=== PATIENT | male | born 1950 | race Caucasian/White ===

== ENCOUNTER 2021-06-08 06:59 | Inpatient (IN) | payer MEDICARE, OTHER ==
[~2021-06-08] VITALS: Ht 195.6 cm; Wt 90.5 kg
[2021-06-08] MEDS ORDERED: LABETALOL 100MG/20ML VIAL IV STA ×2 (07:29→08:42)
--- NOTE | 2021-06-08 07:47 | REPVR ---
PROCEDURE INFORMATION: Exam: CT Head Without Contrast Exam date and time: 06/08/2021 7:42 AM Age: 71 years old Clinical indication: Weakness, extremity; Additional info: CVA TECHNIQUE: Imaging protocol: Computed tomography of the head without contrast. Radiation optimization: All CT scans at this facility use at least one of these dose optimization techniques: automated exposure control; mA and/or kV adjustment per patient size (includes targeted exams where dose is matched to clinical indication); or iterative reconstruction. Other technique: STROKE PROTOCOL was implemented. COMPARISON: No relevant prior studies available. FINDINGS: Brain: The brain demonstrates mild diffuse volume loss. There is white matter hypodensity most consistent with chronic small vessel ischemic change. Cerebral ventricles: The ventricles and CSF spaces are proportionately enlarged. Paranasal sinuses: Visualized sinuses are unremarkable. No fluid levels. Mastoid air cells: Visualized mastoid air cells are well aerated. Vasculature: There is atherosclerotic disease involving the vertebral basilar system and cavernous ICAs. Bones/joints: No acute fracture. Soft tissues: Unremarkable. IMPRESSION: 1. Mild atrophy and the sequela prior small vessel ischemia. 2. There is no acute intracranial abnormality. ASSESSMENT: ASPECTS ([place] Stroke Program Early CT Score) is 10. Electronically signed by: Imtiaz Briones On 06/08/2021 07:46:35 AM
[2021-06-08 08:02] LABS: BASO % 0.9 % (0.0-1.0); HEMATOCRIT 31.4 % (42.0-52.0); HEMOGLOBIN 10.7 g/dl (13.5-17.5); LYMPH # 0.5 10^3/uL (1.5-5.0); LYMPH % 11.2 % (24.0-44.0); MEAN CORPUSCULAR HEMOGLOBIN 33.4 pg (27.0-33.0); MEAN CORPUSCULAR HGB CONC 34.1 g/dl (32.0-36.5); MEAN CORPUSCULAR VOLUME 98.1 fl (80.0-96.0); MONO # 0.4 10^3/uL (0.0-0.8); MONO % 8.8 % (2.0-8.0); NEUTROPHILS # 3.6 10^3/uL (1.5-8.5); NEUTROPHILS % 78.4 % (36.0-66.0); PLATELET COUNT, AUTOMATED 142 10^3/uL (150-450); WHITE BLOOD COUNT 4.6 10^3/uL (4.0-10.0)
--- NOTE | 2021-06-08 08:25 | REP ---
INDICATION: weakness. COMPARISON: None TECHNIQUE: Portable AP chest with the patient sitting. FINDINGS: There is mild diffuse interstitial coarsening. There are no comparison studies. This could be chronic, acute or combination. There are surgical staple lines in the right mid lung. There are no focal infiltrates. There are no pleural effusions. Cardiac size is normal. The fransico, mediastinum, and skeletal structures are unremarkable. IMPRESSION: Mild diffuse interstitial coarsening, acute, chronic or combination. There are no comparisons. Surgical staple lines in the right mid lung. <Electronically signed by Santi Macedo > 06/08/21 [id number]
[2021-06-08 08:37] LABS: ALBUMIN 3.2 GM/DL (3.2-5.2); ALT/SGPT 16 U/L (12-78); BILIRUBIN,DIRECT 0.3 MG/DL (0.0-0.2); BILIRUBIN,TOTAL 0.9 MG/DL (0.2-1.0); BLOOD UREA NITROGEN 7 MG/DL (7-18); CALCIUM LEVEL 7.6 MG/DL (8.8-10.2); CARBON DIOXIDE LEVEL 16 MEQ/L (21-32); CHLORIDE LEVEL 97 MEQ/L (98-107); CK-MB VALUE MASS 2.3 NG/ML (<3.6); CPK CREATINE PHOSPHOKINASE 69 U/L (39-308); CREATININE FOR GFR 0.58 MG/DL (0.70-1.30); FREE T4 1.01 NG/DL (0.76-1.46); GLOMERULAR FILTRATION RATE > 60.0 (>49); GLUCOSE, FASTING 68 MG/DL (70-100); MB/CK RELATIVE INDEX 3.33 (< OR =4); POTASSIUM SERUM 3.5 MEQ/L (3.5-5.1); SODIUM LEVEL 131 MEQ/L (136-145); THYROID STIMULATING HORMONE 0.133 uIU/ML (0.358-3.740); TOTAL PROTEIN 6.7 GM/DL (6.4-8.2); TROPONIN I < 0.02 NG/ML (< 0.10)
[2021-06-08 09:08] LABS: ABG BASE EXCESS -1.6 (-2.0-2.0); ABG HCO3 19.4 MEQ/L (22.0-26.0); ABG O2 SATURATION 97.9 % (95.0-99.0); ABG PARTIAL PRESSURE CO2 24.1 mmHg (35.0-45.0); ABG PARTIAL PRESSURE O2 100.4 mmHg (75.0-100.0); ABG STANDARD HCO3 23.2 MEQ/L (22.0-26.0); ABG TOTAL CO2 20.1 MEQ/L (23.0-31.0); ABG pH (ARTERIAL) 7.523 UNITS (7.350-7.450)
[2021-06-08] MEDS ORDERED: cloNIDine 0.2 MG TAB PO ONE (09:25)
[2021-06-08] MEDS ORDERED: ACETAMINOPHEN TAB 650MG DOSE (2X325MG) PO PRN (09:25)
[2021-06-08] MEDS ORDERED: LORazepam 2 MG TAB PO PRN (09:25)
[2021-06-08] MEDS: THIAMINE 100 MG TAB PO SCH ×2 (10:07→20:52)
[2021-06-08] MEDS: FOLIC ACID 1 MG TAB PO SCH (10:07)
[2021-06-08] MEDS: MULTIVITAMINS/MINERALS THERAP 1 TAB PO SCH (10:08)
[2021-06-08 10:13] LABS: RSV AMPLIFICATION NEGATIVE (NEGATIVE)
[2021-06-08] MEDS ORDERED: MAGN400T2 PO (10:17)
[2021-06-08] MEDS ORDERED: FOLI1TAB11 PO (10:17)
[2021-06-08] MEDS ORDERED: HYDR100T PO (10:17)
[2021-06-08] MEDS ORDERED: CLON0.2T PO (10:17)
[2021-06-08] MEDS ORDERED: SODI1TAB12 PO (10:17)
[2021-06-08] MEDS ORDERED: METO100T5 PO (10:17)
[2021-06-08] MEDS ORDERED: VITA100T28 PO (10:17)
[2021-06-08] MEDS ORDERED: HOME MED LIST COMPLETE! XX SCH (10:20)
[2021-06-08 10:39] LABS: ACETAMINOPHEN LEVEL < 2.0 UG/ML (10.0-30.0); ETHYL ALCOHOL (ETHANOL) < 0.003 % (0.000-0.010); SALICYLATE LEVEL < 1.7 MG/DL (5.0-30.0)
[2021-06-08] MEDS: METOPROLOL TARTRATE 100 MG TAB PO SCH ×2 (12:08→20:52)
[2021-06-08] MEDS: **hydrALAZINE** 50 MG TAB PO SCH ×3 (12:08→20:52)
[2021-06-08] MEDS: ENOXAPARIN 40MG/0.4ML SYRINGE (J1650 PER 10MG) SC SCH (12:09)
--- NOTE | 2021-06-08 15:36 | HPEPDOC ---
[facility] Medical History & Physical Date of Admission Jun 08, 2021 Date of Service: Jun 08, 2021 Attending Physician: HUDSON HERNANDEZ MD History and Physical CHIEF COMPLAINT: Lower extremity weakness, inability to ambulate HISTORY OF PRESENT ILLNESS: 71 yo man who recently moved to [place] 1 week ago from the [facility], with a history of severe essential HTN on clonidine 0.2 BID, lopressor 100 BID, hydral 100 TID at baseline and has not taken his meds today, suspected alcohol use disorder with daily use, Dupuytren's contractures, and history of constrictive bronchiolitis and pulmonary fibrosis who presented to the ED with lower extremity weakness and inability to ambulate reporting that having had tingling in his feet for a while now but now also has weakness and this morning could not get out of bed and had to crawl. He reports recently having moved to [place] to live with his son, after he lost most of of his livelihood due ongoing divorce with his ex- and lost his apartment, car etc and so moved to live with the kids here. He denies a history of smoking, illicit drugs, but does have significant alcohol consumption, which he initially reported to be daily but then later reported 12 pack per week and report having had 4 beers last night. When asked about his Dupuytren's contractures, he reported them to be familial with several brothers who have them as well. He otherwise denied history of DM, fever, chills, chest pain, palpitations, headaches, falls, dizziness or SOB. In the ED, he was hypertensive to SBP 190s and received labetalol IV, a total of 30mg with mild effect. Investigations were notable for EKG with NSR, troponin that was negative, CXR without pathology, WBC 4.6, hgb 10.7, platelets 142, LFTs wnl, na 131, K 3.5, Cr 0.58, glucose [address] that showed no mass, bleeding or infarct. He is now being admitted for hypertensive urgency, likely dehydration i/s/o alcohol consumption (later had a reported mild lactic acidosis), and possible impending alcohol withdrawal. PAST MEDICAL HISTORY: severe essential HTN Chronic hyponatremia Suspected alcohol use disorder with daily use Dupuytren's contractures history of constrictive bronchiolitis and pulmonary fibrosis PAST SURGICAL HISTORY: Multiple bronchoscopies and biopsies SOCIAL HISTORY: Marital status: In the process of getting a divorce Resides in: [place] Children: 2 sons in [facility], one in [place], one in [place]. Employment: Unemployed Tobacco use: Denies ETOH: Daily use, beer Illicit drug use: Denies FAMILY HISTORY: Brothers also have Dupuytren's contractures ALLERGIES: Please see below. REVIEW OF SYSTEMS: 10 point ROS was completed and was otherwise negative, except as noted above. HOME MEDICATIONS: Please see below. PHYSICAL EXAMINATION: VITAL SIGNS: see below GENERAL APPEARANCE: NAD HEENT: NCAT, EOMI, anicteric, MMM CARDIOVASCULAR: RRR, no m/r/g LUNGS: CTAB ABDOMEN: normoactive sounds, soft, NTND EXTREMITIES: No pedal edema, WWP, good DP pulses NEUROLOGICAL: Cn 3-12 intact, AOx3, grossly nonfocal examination PSYCHIATRIC: Aox3 LABORATORY DATA and IMAGING: Summarized above, see below for full details. MICROBIOLOGY: Please see below. ASSESSMENT: 71 yo man who recently moved to [place] 1 week ago from the [facility], with a history of severe essential HTN on clonidine 0.2 BID, lopressor 100 BID, hydral 100 TID at baseline and has not taken his meds today, suspected alcohol use disorder with daily use, Dupuytren's contractures, and history of constrictive bronchiolitis and pulmonary fibrosis who presented to the ED with lower extremity weakness and inability to ambulate reporting that having had tingling in his feet for a while now but now also has weakness now being admitted for hypertensive urgency, likely dehydration i/s/o alcohol consumption (later had a reported mild lactic acidosis), and possible impending alcohol withdrawal. PLAN: Hypertensive urgency i/s/o no meds onboard today, with a history of severe essential HTN: -restart home meds of clonidine 0.2 BID, lopressor 100 BID, hydral 100 TID -reports a history of allergies to ACEi and CCB -renal US to r/o SHANNON -telemetry -admit to PCU -2g sodium diet Generalized weakness with LE weakness: -possible poor nutrition with alcohol abuse -PT/OT -check a1c, Vit B12 and Vit b6 given neuropathy history -full strength on examination wtih feet blunting of sensation. No red flags on examination and on history -CT head was without acute pathology Suspected alcohol use disorder: -[facility] protocol for potential impending withdrawal, with symptom triggered ativan PRN -thiamine, folate, multivitamin Chronic hyponatremia: -continue home salt tabs -check urine na, serum osm Lactic acidosis: likely 2/2 dehydration i/s/o alcohol -check 4hr recheck, if uptrending, will give some IVF Anemia: -Ferritin, TIBC, iron, Vit b12, folate, retic Neuropathy: -check Vit b12, Vit b6, a1c DVT ppx: lovenox SC Vital Signs Vital Signs Date Time Temp Pulse Resp B/P (MAP) Pulse Ox O2 Delivery O2 Flow Rate FiO2 06/08/21 11:15 70 175/79 (111) 06/08/21 11:01 12 98 06/08/21 07:42 97.4 06/08/21 07:19 Room Air Laboratory Data Labs 24H Laboratory Tests 2 06/08/21 07:22: Bedside Glucose (Misc Panel) 82 06/08/21 07:49: Immature Granulocyte % (Auto) 0.7, Neutrophils (%) (Auto) 78.4H, Lymphocytes (%) (Auto) 11.2L, Monocytes (%) (Auto) 8.8H, Eosinophils (%) (Auto) 0.0, Basophils (%) (Auto) 0.9, Neutrophils # (Auto) 3.6, Lymphocytes # (Auto) 0.5L, Monocytes # (Auto) 0.4, Eosinophils # (Auto) 0.0, Basophils # (Auto) 0.0, Nucleated Red Blood Cells % (auto) 0.0, Anion Gap 18H, Glomerular Filtration Rate > 60.0, Calcium Level 7.6L, Total Bilirubin 0.9, Direct Bilirubin 0.3H, Aspartate Amino Transf (AST/SGOT) 29, Alanine Aminotransferase (ALT/SGPT) 16, Alkaline Phosphatase 52, Total Creatine Kinase 69, Creatine Kinase MB 2.3, Creatine Kinase MB Relative Index 3.33, Troponin I < 0.02, Total Protein 6.7, Albumin 3.2, Albumin/Globulin Ratio 0.9, Thyroid Stimulating Hormone (TSH) 0.133L, Free Thyroxine 1.01 06/08/21 08:58: Blood Gas Bicarbonate Standard 23.2, Arterial Blood pH 7.523H, Arterial Blood Partial Pressure CO2 24.1L, Arterial Blood Partial Pressure O2 100.4H, Arterial Blood Total CO2 20.1L, Arterial Blood HCO3 19.4L, Arterial Blood Base Excess - 1.6, Arterial Blood Oxygen Saturation 97.9 06/08/21 09:23: Coronavirus (COVID-19)(PCR) NEGATIVE, Influenza Type A (RT-PCR) NEGATIVE, Influenza Type B (RT-PCR) NEGATIVE, Respiratory Syncytial Virus (PCR) NEGATIVE 06/08/21 09:58: Lactic Acid Level 3.2*H, Salicylates Level < 1.7L, Acetaminophen Level < 2.0L, Ethyl Alcohol Level < 0.003 06/08/21 10:11: 06/08/21 14:06: Bedside Glucose (Misc Panel) 72L 06/08/21 14:29: CBC/BMP Laboratory Tests 06/08/21 07:49 Home Medications Scheduled Clonidine HCl (Clonidine HCl) 0.2 Mg Tablet, 0.2 MG PO TID Folic Acid (Folic Acid) 1 Mg Tablet, 1 MG PO DAILY Magnesium Oxide (Magnesium Oxide) 400 Mg Tablet, 400 MG PO DAILY Metoprolol Tartrate (Metoprolol Tartrate) 100 Mg Tablet, 100 MG PO BID Sodium Chloride (Sodium Chloride) 1 Gm Tablet, 1 GM PO TID Thiamine Mononitrate (Vit B1) (Vitamin B-1) 100 Mg Tablet, 100 MG PO DAILY hydrALAZINE HCL (Hydralazine HCl) 100 Mg Tablet, 100 MG PO TID Allergies Coded Allergies: amlodipine (Verified Allergy, Unknown, 06/08/21) lisinopril (Verified Allergy, Unknown, 06/08/21) prednisone (Verified Allergy, Unknown, 06/08/21) A-FIB/CHADSVASC A-FIB History Current/History of A-Fib/PAF?: No Current PO Anticoag Therapy: No Age/Risk Factor Scoring CHADSVASC: CHADSVASC Response (Comments) Value Age Risk Factor Age 65-74 years old 1 Gender Risk Factor Male 0 Hx of CHF No 0 Hx of HTN Yes 1 Hx of Stroke/TIA/or VTE No 0 Hx of Diabetes No 0 Hx of Vascular Disease No 0 Total 2 Treatment Treatment ordered: NONE Reason Anticoagulant not given: Not indicated/[id number] HUDSON HERNANDEZ MD Jun 08, 2021 15:36
[2021-06-08 15:45] VITALS: BP_SYST 178; BP_SYST 188; BP_DIAS 88; BP_DIAS 95
[2021-06-08] MEDS: cloNIDine 0.2 MG TAB PO SCH ×2 (16:15→20:50)
[2021-06-08 20:00] VITALS: BP 137/70
[2021-06-08] MEDS ORDERED: cloNIDine 0.1MG TABLET PO SCH (21:00)
[2021-06-08 22:00] VITALS: BP_SYST 130; BP_SYST 137; BP_DIAS 70
[2021-06-09] VITALS: BP 131/70
[2021-06-09 04:00] VITALS: BP 165/86
[2021-06-09 05:25] LABS: HEMATOCRIT 37.1 % (42.0-52.0); MEAN CORPUSCULAR HEMOGLOBIN 33.8 pg (27.0-33.0); MEAN CORPUSCULAR HGB CONC 35.3 g/dl (32.0-36.5); MEAN CORPUSCULAR VOLUME 95.6 fl (80.0-96.0); PLATELET COUNT, AUTOMATED 156 10^3/uL (150-450); RED BLOOD COUNT 3.88 10^6/uL (4.30-6.10); WHITE BLOOD COUNT 4.9 10^3/uL (4.0-10.0)
[2021-06-09 05:32] LABS: HEMOGLOBIN 13.1 g/dl (13.5-17.5)
[2021-06-09 05:56] LABS: BLOOD UREA NITROGEN 7 MG/DL (7-18); CALCIUM LEVEL 7.8 MG/DL (8.8-10.2); CARBON DIOXIDE LEVEL 27 MEQ/L (21-32); CHLORIDE LEVEL 95 MEQ/L (98-107); CREATININE FOR GFR 0.67 MG/DL (0.70-1.30); FERRITIN 320 NG/ML (26-388); GLOMERULAR FILTRATION RATE > 60.0 (>49); GLUCOSE, FASTING 77 MG/DL (70-100); IRON (FE) 134 UG/DL (65-175); MAGNESIUM LEVEL 1.4 MG/DL (1.8-2.4); PERCENT SATURATION 76.1 % (19.7-50.0); POTASSIUM SERUM 3.8 MEQ/L (3.5-5.1); SODIUM LEVEL 130 MEQ/L (136-145); TOTAL IRON BINDING CAPACITY 176 UG/DL (250-450)
[2021-06-09 06:00] VITALS: BP 165/86
[2021-06-09 06:10] LABS: HEMOGLOBIN A1c 4.5 %
--- NOTE | 2021-06-09 07:00 | ECGEPIP ---
[facility] - ED Test Date: 2021-06-08 Pat Name: ERICA MCKEON Department: Room: [place] [address] Gender: Male Intranet Specialist: : [id number] Requested By: ARIELLA Addison Order Number: [id number] Reading MD: Koko Du Measurements Intervals [place] Rate: 78 P: 95 IN: 146 QRS: 71 QRSD: 94 T: -19 QT: 416 QTc: 474 Interpretive Statements Sinus rhythm with premature atrial complexes Inferior infarct , age undetermined BASELINE ARTIFACT AFFECTS INTERPRETATION NO PRIORS FOR COMPARISON Electronically Signed on 06-09-2021 7:00:19 EDT by Koko Du
[2021-06-09] MEDS ORDERED: MAG SULF 1GM/100ML (MAG RUN) 1 GM in IV 1 EA IV ONE (07:50)
[2021-06-09 08:00] VITALS: BP 178/88
[2021-06-09 08:53] LABS: FOLATE 15.2 NG/ML
[2021-06-09 08:59] LABS: VITAMIN B12 LEVEL 620 PG/ML
[2021-06-09] MEDS ORDERED: METOPROLOL SUCC (TopROL XL) 50MG **XL** TAB PO SCH (09:00)
[2021-06-09] MEDS: METOPROLOL TARTRATE 100 MG TAB PO SCH (09:00)
[2021-06-09] MEDS: cloNIDine 0.2 MG TAB PO SCH ×2 (09:00→10:19)
[2021-06-09] MEDS ORDERED: SODIUM CHLORIDE 1 GM TAB PO SCH (09:00)
[2021-06-09] MEDS: THIAMINE 100 MG TAB PO SCH (09:03)
[2021-06-09] MEDS: FOLIC ACID 1 MG TAB PO SCH (09:03)
[2021-06-09] MEDS: MULTIVITAMINS/MINERALS THERAP 1 TAB PO SCH (09:03)
[2021-06-09] MEDS: ENOXAPARIN 40MG/0.4ML SYRINGE (J1650 PER 10MG) SC SCH (09:04)
[2021-06-09] MEDS: **hydrALAZINE** 50 MG TAB PO SCH (09:04)
--- NOTE | 2021-06-09 09:08 | REP ---
INDICATION: Hypertension. R/O Renal Artery Stenosis. COMPARISON: None. TECHNIQUE: Bilateral renal ultrasound followed by bilateral renal artery Doppler ultrasound. FINDINGS: Bilateral renal ultrasound: The right kidney measures 11.0 x 4.7 x 5.6 cm. The left kidney measures 12.1 x 4.4 x 5.7 cm. The kidneys are normal size. Renal cortical echogenicity is normal bilaterally. There is no hydronephrosis or hydroureter on the right or the left. There are no solid or cystic renal masses. Bladder: The bladder is incompletely distended and cannot be further evaluated. With Doppler ultrasound we are unable to identify ureteral jets. However, there is no hydronephrosis. The prostate measures 4.6 x 3.4 x 5.2 cm for a volume of 42.5 cc and is enlarged. IMPRESSION: The prostate is enlarged. The bladder is incompletely distended and cannot be further evaluated. Ureteral jets could not be identified, however there is no hydronephrosis. Otherwise, negative renal ultrasound. Bilateral renal artery duplex Doppler ultrasound: Right renal artery: Peak renal artery velocity: 117.4 centimeters/second. Peak aortic velocity: 86.2 centimeters/second. Renal-aortic ratio: 1.36. Resistive index: Upper pole 0.75, mid pole 0.75, lower pole 0.73 Acceleration time: Upper pole 0.019, mid pole 0.042, lower pole 0.014. Left kidney: Peak renal artery velocity: 104.9 centimeters/second. Peak aortic velocity: 86.2 centimeters/second. Renal-aortic ratio: 1.21. Resistive index: Upper pole 0.78, mid pole 0.78, lower pole 0.80. Acceleration time: Upper pole 0.025, mid pole 0.031, lower pole 0.025. Impression: The renal artery flow velocities are normal. The resistive indices and acceleration times are normal. There is no Doppler ultrasound evidence of renal artery stenosis. <Electronically signed by Santi Macedo > 06/09/21 [id number]
[2021-06-09 10:19] VITALS: BP 180/85
--- NOTE | 2021-06-09 11:28 | IPNPDOC ---
Text Note Date of Service The patient was seen on 06/09/21. NOTE Subjective: -No acute complaints Objective: VITAL SIGNS: see below GENERAL APPEARANCE: NAD HEENT: NCAT, EOMI, anicteric, MMM CARDIOVASCULAR: RRR, no m/r/g LUNGS: CTAB ABDOMEN: normoactive sounds, soft, NTND EXTREMITIES: No pedal edema, WWP, good DP pulses NEUROLOGICAL: Cn 3-12 intact, AOx3, grossly nonfocal examination PSYCHIATRIC: Aox3 LABORATORY DATA: reviewed WBC 4.9 Na 130 K 3.8 Cr 0.67 Ferritin 320 a1c 4.5 hgb 13.1 MICROBIOLOGY: Please see below. ASSESSMENT: 71 yo man who recently moved to [place] 1 week ago from the [facility], with a history of severe essential HTN on clonidine 0.2 BID, lopressor 100 BID, hydral 100 TID at baseline and has not taken his meds today, suspected alcohol use disorder with daily use, Dupuytren's contractures, and hi story of constrictive bronchiolitis and pulmonary fibrosis who presented to the ED with lower extremity weakness and inability to ambulate reporting that having had tingling in his feet for a while now but now also has weakness and was admitted for hypertensive urgency, weakness with inability to ambulate and possible impending alcohol withdrawal. PLAN: Hypertensive urgency i/s/o no meds onboard today, with a history of severe essential HTN: -continue clonidine 0.2 BID, lopressor 100 BID, hydral 100 TID -FYI: reports a history of allergies to ACEi and CCB -f/u renal US to r/o SHANNON -2g sodium diet Generalized weakness with LE weakness: -possible poor nutrition with alcohol abuse -PT/OT -a1c wnl, f/u Vit B12 and Vit b6 given neuropathy history -full strength on examination with feet blunting of sensation. No red flags on examination and on history -CT head was without acute pathology Suspected alcohol use disorder: -[facility] protocol for potential impending withdrawal, with symptom triggered ativan PRN -thiamine, folate, multivitamin Chronic hyponatremia: -continue home salt tabs Lactic acidosis: likely 2/2 dehydration i/s/o alcohol -resolved Anemia: improved hgb this AM? -Ferritin wnl, TIBC appropriate, iron wnl, appropriate retic index -f/u Vit b12, folate Neuropathy: -check Vit b12, Vit b6 -a1c wnl DVT ppx: lovenox SC Dispo: downgrade to [facility], has ongoing PT/OT, might be able to discharge home if cleared. Will need PCP with resident clinic and cardiology referral for severe HTN VS,Fishbone, I+O VS, Fishbone, I+O Laboratory Tests 06/09/21 05:06 Vital Signs Date Time Temp Pulse Resp B/P (MAP) Pulse Ox O2 Delivery O2 Flow Rate FiO2 06/09/21 06:00 60 165/86 06/09/21 04:00 98.1 16 98 Room Air I&O- Last 24 Hours up to 6 AM 06/09/21 05:59 Intake Total 240 ml Output Total 1300 ml Balance -1060 ml HUDSON HERNANDEZ MD Jun 09, 2021 08:06
[2021-06-09 12:00] VITALS: BP 152/80
--- NOTE | 2021-06-09 13:36 | DS.PDOC ---
Discharge Summary General Date of Admission Jun 08, 2021 at 09:23 Date of Discharge 06/09/2021 Attending Physician: HUDSON HERNADNEZ MD Discharge Summary PROCEDURES PERFORMED DURING STAY: None ADMITTING DIAGNOSES: Hypertensive urgency Generalized weakness with inability to ambulate Presumed alcohol use disorder DISCHARGE DIAGNOSES: Hpertensive urgency i/s/o longstanding severe essential HTN having missed morning medications Chronic hyponatremia Suspected alcohol use disorder with daily use, without evidence of withdrawal Dupuytren's contractures History of constrictive bronchiolitis and pulmonary fibrosis Generalized weakness, much improved COMPLICATIONS/CHIEF COMPLAINT: Alcohol Abuse,Hypertensive Urgency. HISTORY OF PRESENT ILLNESS: 71 yo man who recently moved to [place] 1 week prior to presentation from the [facility], with a history of severe essential HTN on clonidine 0.2 BID, lopressor 100 BID, hydral 100 TID at baseline and had not taken his meds on the morning of presentation, suspected alcohol use disorder with daily use, Dupuytren's contractures, and history of constrictive bronchiolitis and pulmonary fibrosis who presented to the ED with lower extremity weakness and inability to ambulate reporting some tingling in his feet for a while now but now also had weakness on the morning of presentation such that he could not get out of bed and had to crawl. He reported recently having moved to [place] to live with his son, after he lost most of of his livelihood due ongoing divorce with his ex- and lost his apartment, car etc and so moved to live with the adult kids here. He denies a history of smoking, illicit drugs, but does have significant alcohol consumption, which he initially reported to be daily but then later reported 12 pack per week and report having had 4 beers last the night prior to presentation. When asked about his Dupuytren's contractures, he reported them to be familial with several brothers who have them as well. He otherwise denied history of DM, fever, chills, chest pain, palpitations, headaches, falls, dizziness or SOB. HOSPITAL COURSE: In the ED, he was hypertensive to SBP 190s and received labetalol IV, a total of 30mg with mild effect. Investigations were notable for EKG with NSR, troponin that was negative, CXR without pathology, WBC 4.6, hgb 10.7, platelets 142, LFTs wnl, na 131, K 3.5, Cr 0.58, glucose [address] that showed no mass, bleeding or infarct. He was admitted for hypertensive urgency, weakness with inability to ambulate and possible impending alcohol withdrawal. On admission, I restarted his home meds with improvement in his HTN. He worked with PT and OT and did very well including ambulation and climbing stairs. He is now being discharged home to continue his baseline HTN meds, with new PCP setup for the resident clinic as well as referral to cardiology for hypertensive specialist given his severe longstanding hypertension. On another note, we discussed the deletirious effects of excessive alcohol consumption and the definition of dependence and risk for it with daily use. DISCHARGE MEDICATIONS: Please see below. ALLERGIES: Please see below. PHYSICAL EXAMINATION ON DISCHARGE: VITAL SIGNS: Please see below. GENERAL APPEARANCE: NAD HEENT: NCAT, EOMI, anicteric, MMM CARDIOVASCULAR: RRR, no m/r/g LUNGS: CTAB ABDOMEN: normoactive sounds, soft, NTND EXTREMITIES: No pedal edema, WWP, good DP pulses NEUROLOGICAL: Cn 3-12 intact, AOx3, grossly nonfocal examination PSYCHIATRIC: Aox3 LABORATORY DATA: Please see below. IMAGING: Ct head: No acute pathology without bleeding, masses or evidence of infarct CXR: Mild diffuse interstitial coarsening, acute, chronic or combination. There are no comparisons. Surgical staple lines in the right mid lung. PROGNOSIS: good ACTIVITY: As tolerated DIET: 2g sodium DISCHARGE PLAN: Home to continue current BP meds with close new PCP appointment within 7d and cardiology referral DISPOSITION: Home DISCHARGE INSTRUCTIONS: Home to continue current BP meds with close new PCP appointment within 7d and cardiology referral ITEMS TO FOLLOWUP ON ON OUTPATIENT: HTN Alcohol cessation DISCHARGE CONDITION: Stable TIME SPENT ON DISCHARGE: 34 minutes. Vital Signs/I&Os Vital Signs Date Time Temp Pulse Resp B/P (MAP) Pulse Ox O2 Delivery O2 Flow Rate FiO2 06/09/21 12:00 97.6 75 17 152/80 (104) 98 Room Air I&O- Last 24 Hours up to 6 AM 06/09/21 06:00 Intake Total 240 ml Output Total 1300 ml Balance -1060 ml Laboratory Data Labs 24H Laboratory Tests 2 06/08/21 14:06: Bedside Glucose (Misc Panel) 72L 06/08/21 14:29: Lactic Acid Followup at 4 Hours 1.5 8/11/21 00:01: Bedside Glucose (Misc Panel) 88 06/09/21 05:06: Reticulocyte # (auto) 57.4, Nucleated Red Blood Cells % (auto) 0.0, Percent Reticulocyte Count 1.5, Reticulocyte Hemoglobin Equivalent 38.1H, Anion Gap 8, Glomerular Filtration Rate > 60.0, Estimated Mean Plasma Glucose 82, Hemoglobin A1c 4.5, Calcium Level 7.8L, Magnesium Level 1.4L, Iron Level 134, Total Iron Binding Capacity 176L, Transferrin % Saturation 76.1H, Ferritin 320, Vitamin B12 Level 620, Folate 15.2 CBC/BMP Laboratory Tests 06/09/21 05:06 FSBS Laboratory Tests Test 06/08/21 14:06 06/09/21 00:01 Range/Units Bedside Glucose (Misc Panel) 72 88 80-115 MG/DL Discharge Medications Scheduled Clonidine HCl (Clonidine HCl) 0.2 Mg Tablet, 0.2 MG PO TID, (Reported) Folic Acid (Folic Acid) 1 Mg Tablet, 1 MG PO DAILY, (Reported) Magnesium Oxide (Magnesium Oxide) 400 Mg Tablet, 400 MG PO DAILY, (Reported) Metoprolol Tartrate (Metoprolol Tartrate) 100 Mg Tablet, 100 MG PO BID, (R eported) Sodium Chloride (Sodium Chloride) 1 Gm Tablet, 1 GM PO TID, (Reported) Thiamine Mononitrate (Vit B1) (Vitamin B-1) 100 Mg Tablet, 100 MG PO DAILY, (Reported) hydrALAZINE HCL (Hydralazine HCl) 100 Mg Tablet, 100 MG PO TID, (Reported) Allergies Coded Allergies: amlodipine (Verified Allergy, Unknown, 06/08/21) lisinopril (Verified Allergy, Unknown, 06/08/21) prednisone (Verified Allergy, Unknown, 06/08/21) HUDSON HERNANDEZ MD Jun 09, 2021 13:36
== END 2021-06-09 13:48 | disposition home or self-care (01) | DRG 556 ==
LOC: M ED 06:59 → M ED INP 09:23 → ENRESERV 14:29 → M PCU 15:46
PROVIDERS: ADMIT Internal Medicine; ATTEND Internal Medicine
DX: M62.81 Muscle weakness (generalized) (principal); E87.1 Hypo-osmolality and hyponatremia; E87.2 Acidosis; I16.0 Hypertensive urgency; F10.10 Alcohol abuse, uncomplicated; D64.9 Anemia, unspecified; G62.9 Polyneuropathy, unspecified; I10 Essential (primary) hypertension; J84.10 Pulmonary fibrosis, unspecified; M72.0 Palmar fascial fibromatosis [Dupuytren]; Z79.899 Other long term (current) drug therapy; Z88.8 Allergy status to other drugs, medicaments and biological substances; Z91.14 Patient's other noncompliance with medication regimen

== ENCOUNTER → 2021-09-17 | Outpatient (CLI) | payer OTHER ==
[~2021-09-17] MED LIST: CLON0.2T PO; FOLI1TAB11 PO; HYDR100T PO; MAGN400T2 PO; METO100T5 PO; SODI1TAB12 PO; VITA100T28 PO
== END ==
LOC: M RAD 16:07
PROVIDERS: ATTEND Internal Medicine Pulmonary Disease
DX: J47.9 Bronchiectasis, uncomplicated (principal); J43.9 Emphysema, unspecified; J84.9 Interstitial pulmonary disease, unspecified

== ENCOUNTER → 2022-05-26 | Outpatient (REF) | payer OTHER ==
[2022-05-26 17:43] LABS: OSMOLALITY URINE 422 MOSM/KG (50-1400)
[2022-05-26 18:41] LABS: SODIUM,RANDOM URINE 34 MEQ/L
== END ==
LOC: M LAB REF 17:00
PROVIDERS: ATTEND Internal Medicine Nephrology
DX: E87.1 Hypo-osmolality and hyponatremia (principal)

== ENCOUNTER → 2022-09-28 | Outpatient (REF) | payer OTHER, MEDICAID ==
[2022-09-28 18:15] LABS: BASO # 0.1 10^3/uL (0.0-0.2); BASO % 1.4 % (0.0-1.0); EOS # 0.1 10^3/uL (0.0-0.5); EOS % 1.1 % (0.0-3.0); HEMATOCRIT 44.7 % (42.0-52.0); HEMOGLOBIN 14.7 g/dl (13.5-17.5); LYMPH # 1.1 10^3/uL (1.5-5.0); LYMPH % 17.3 % (24.0-44.0); MEAN CORPUSCULAR HEMOGLOBIN 30.9 pg (27.0-33.0); MEAN CORPUSCULAR HGB CONC 32.9 g/dl (32.0-36.5); MEAN CORPUSCULAR VOLUME 94.1 fl (80.0-96.0); MONO # 0.5 10^3/uL (0.0-0.8); MONO % 7.6 % (2.0-8.0); NEUTROPHILS # 4.6 10^3/uL (1.5-8.5); NEUTROPHILS % 72.1 % (36.0-66.0); PLATELET COUNT, AUTOMATED 178 10^3/uL (150-450); RED BLOOD COUNT 4.75 10^6/uL (4.30-6.10); WHITE BLOOD COUNT 6.4 10^3/uL (4.0-10.0)
[2022-09-28 22:25] LABS: ALKALINE PHOSPHATASE 85 U/L (46-116); ALT/SGPT 12 U/L (7.0-40); AST/SGOT 19 U/L (<34); BILIRUBIN,DIRECT 0.5 MG/DL (<0.4); BILIRUBIN,TOTAL 1.3 MG/DL (0.3-1.2); BLOOD UREA NITROGEN 20 MG/DL (9-23); CALCIUM LEVEL 8.7 MG/DL (8.3-10.6); CARBON DIOXIDE LEVEL 27 MMOL/L (20-31); CHLORIDE LEVEL 100 MMOL/L (98-107); CREATININE FOR GFR 1.05 MG/DL (0.70-1.30); GLOMERULAR FILTRATION RATE > 60.0 (>42); GLUCOSE, FASTING 70 MG/DL (74-106); POTASSIUM SERUM 3.9 MMOL/L (3.5-5.1); SODIUM LEVEL 135 MMOL/L (136-145); TOTAL PROTEIN 8.1 G/DL (5.7-8.2)
== END ==
LOC: M LAB REF 17:44
PROVIDERS: ATTEND Pediatrics
DX: F10.10 Alcohol abuse, uncomplicated (principal); E78.1 Pure hyperglyceridemia

== ENCOUNTER → 2022-11-14 | Outpatient (REF) | payer OTHER, MEDICAID ==
[2022-11-14 17:18] LABS: BILIRUBIN,DIRECT 0.4 MG/DL (<0.4); CHOLESTEROL RISK RATIO 3.63 (<5); HDL CHOLESTEROL 49.2 MG/DL (>40)
== END ==
LOC: M LAB REF 16:25
PROVIDERS: ATTEND Pediatrics
DX: R94.5 Abnormal results of liver function studies (principal); E78.5 Hyperlipidemia, unspecified

== ENCOUNTER → 2023-01-31 | Outpatient (CLI) | payer OTHER | LOC: M CARPUL 10:16 | PROVIDERS: ATTEND Pediatrics | DX: R01.1 Cardiac murmur, unspecified (principal) ==

== ENCOUNTER → 2023-02-01 | Outpatient (CLI) | payer OTHER | LOC: M RAD 12:04 | PROVIDERS: ATTEND Nurse Practitioner Family | DX: E04.2 Nontoxic multinodular goiter (principal) ==

== ENCOUNTER → 2023-02-23 | Outpatient (REF) | payer OTHER | LOC: M LAB REF 10:00 | PROVIDERS: ATTEND Internal Medicine Endocrinology, Diabetes & Metabolism | DX: E04.2 Nontoxic multinodular goiter (principal) ==

== ENCOUNTER → 2024-02-26 | Outpatient (REF) | payer OTHER, MEDICARE ==
[2024-02-26 17:22] LABS: BASO # 0.1 10^3/uL (0.0-0.2); BASO % 1.1 % (0.0-1.0); EOS # 0.1 10^3/uL (0.0-0.5); EOS % 0.7 % (0.0-3.0); HEMATOCRIT 42.4 % (42.0-52.0); HEMOGLOBIN 14.3 g/dl (13.5-17.5); LYMPH # 1.3 10^3/uL (1.5-5.0); LYMPH % 14.7 % (24.0-44.0); MEAN CORPUSCULAR HEMOGLOBIN 30.8 pg (27.0-33.0); MEAN CORPUSCULAR HGB CONC 33.7 g/dl (32.0-36.5); MEAN CORPUSCULAR VOLUME 91.2 fl (80.0-96.0); MONO # 0.8 10^3/uL (0.0-0.8); MONO % 8.6 % (2.0-8.0); NEUTROPHILS # 6.5 10^3/uL (1.5-8.5); NEUTROPHILS % 74.3 % (36.0-66.0); PLATELET COUNT, AUTOMATED 213 10^3/uL (150-450); RED BLOOD COUNT 4.65 10^6/uL (4.30-6.10); WHITE BLOOD COUNT 8.7 10^3/uL (4.0-10.0)
[2024-02-26 17:27] LABS: BLOOD UREA NITROGEN 23 MG/DL (9-23); CALCIUM LEVEL 8.8 MG/DL (8.3-10.6); CARBON DIOXIDE LEVEL 26 MMOL/L (20-31); CHLORIDE LEVEL 95 MMOL/L (98-107); CHOLESTEROL LEVEL 154 MG/DL (<200); CHOLESTEROL RISK RATIO 2.92 (<5); CREATININE FOR GFR 1.05 MG/DL (0.70-1.30); GLOMERULAR FILTRATION RATE > 60.0 (>42); GLUCOSE, FASTING 87 MG/DL (74-106); HDL CHOLESTEROL 52.7 MG/DL (>40); LDL CHOLESTEROL 84.3 MG/DL (<100); NON-HDL-C 101.3 MG/DL; POTASSIUM SERUM 4.2 MMOL/L (3.5-5.1); SODIUM LEVEL 129 MMOL/L (136-145); TRIGLYCERIDES LEVEL 85 MG/DL (<150)
[2024-02-26 17:29] LABS: FERRITIN 135.2 NG/ML (10.5-307.3)
[2024-02-26 17:57] LABS: VITAMIN B12 LEVEL > 2000 PG/ML (211-911)
== END ==
LOC: M LAB REF 16:43
PROVIDERS: ATTEND Pediatrics
DX: I10 Essential (primary) hypertension (principal); D75.89 Other specified diseases of blood and blood-forming organs; R53.83 Other fatigue; D50.9 Iron deficiency anemia, unspecified

== ENCOUNTER → 2024-08-28 | Outpatient (REF) | payer OTHER, MEDICARE | LOC: M LAB REF 17:38 | PROVIDERS: ATTEND Internal Medicine Cardiovascular Disease | DX: R06.09 Other forms of dyspnea (principal) ==

== ENCOUNTER → 2024-09-19 | Outpatient (CLI) | payer OTHER ==
[2024-09-19 14:02] LABS: BASO # 0.1 10^3/uL (0.0-0.2); BASO % 1.2 % (0.0-1.0); EOS # 0.1 10^3/uL (0.0-0.5); EOS % 1.4 % (0.0-3.0); HEMATOCRIT 39.3 % (42.0-52.0); HEMOGLOBIN 13.1 g/dl (13.5-17.5); LYMPH % 15.9 % (24.0-44.0); MEAN CORPUSCULAR HGB CONC 33.3 g/dl (32.0-36.5); MEAN CORPUSCULAR VOLUME 90.1 fl (80.0-96.0); MONO # 0.6 10^3/uL (0.0-0.8); MONO % 9.2 % (2.0-8.0); NEUTROPHILS # 4.7 10^3/uL (1.5-8.5); NEUTROPHILS % 71.8 % (36.0-66.0); PLATELET COUNT, AUTOMATED 193 10^3/uL (150-450); RED BLOOD COUNT 4.36 10^6/uL (4.30-6.10); WHITE BLOOD COUNT 6.5 10^3/uL (4.0-10.0)
[2024-09-19 14:36] LABS: ALBUMIN 3.7 G/DL (3.2-5.2); ALKALINE PHOSPHATASE 125 U/L (40-129); ALT/SGPT 13 U/L (7.0-40); AST/SGOT 12 U/L (<34); BILIRUBIN,TOTAL 1.2 MG/DL (0.3-1.2); BLOOD UREA NITROGEN 26 MG/DL (9-23); CALCIUM LEVEL 8.8 MG/DL (8.3-10.6); CARBON DIOXIDE LEVEL 29 MMOL/L (20-31); CHLORIDE LEVEL 95 MMOL/L (98-107); GLOMERULAR FILTRATION RATE > 60.0 (>42); GLUCOSE, FASTING 85 MG/DL (74-106); POTASSIUM SERUM 3.5 MMOL/L (3.5-5.1); SODIUM LEVEL 132 MMOL/L (136-145); TOTAL PROTEIN 8.7 G/DL (5.7-8.2)
== END ==
LOC: M WUC 09:14
PROVIDERS: ATTEND Internal Medicine Cardiovascular Disease
DX: R06.09 Other forms of dyspnea (principal); I10 Essential (primary) hypertension; E87.1 Hypo-osmolality and hyponatremia; I27.20 Pulmonary hypertension, unspecified

== ENCOUNTER → 2025-01-29 | Outpatient (REF) | payer MEDICARE ==
[2025-01-29 15:46] LABS: CHOLESTEROL RISK RATIO 1.95 (<5); FREE T4 2.04 NG/DL (0.89-1.76); HDL CHOLESTEROL 59.2 MG/DL (>40); LDL CHOLESTEROL 46.6 MG/DL (<100); NON-HDL-C 56.8 MG/DL; PSA SCREENING 0.62 NG/ML (< 4.00)
[2025-01-29 15:47] LABS: THYROID STIMULATING HORMONE 0.233 uIU/ML (0.55-4.78)
== END ==
LOC: M LAB REF 12:42
PROVIDERS: ATTEND Pediatrics
DX: E05.90 Thyrotoxicosis, unspecified without thyrotoxic crisis or storm (principal); Z12.5 Encounter for screening for malignant neoplasm of prostate; I25.10 Atherosclerotic heart disease of native coronary artery without angina pectoris
CPT/HCPCS: 80061; 84439; 84443; G0103

== ENCOUNTER → 2025-07-01 | Outpatient (REF) | payer MEDICARE ==
[2025-07-01 15:33] LABS: CALCIUM LEVEL 9.3 MG/DL (8.3-10.6); CARBON DIOXIDE LEVEL 28.0 MMOL/L (20-31); CHLORIDE LEVEL 97.0 MMOL/L (98-107); CPK CREATINE PHOSPHOKINASE 57.0 U/L (46-171); CREATININE FOR GFR 1.15 MG/DL (0.70-1.30); GLOMERULAR FILTRATION RATE 67.2 (>42); MAGNESIUM LEVEL 1.8 MG/DL (1.8-2.4); POTASSIUM SERUM 4.1 MMOL/L (3.5-5.1); PTH INTACT 53.8 PG/ML (18.5-88.0); SODIUM LEVEL 137.0 MMOL/L (136-145)
== END ==
LOC: M LAB REF 14:48
PROVIDERS: ATTEND Pediatrics
DX: R25.2 Cramp and spasm (principal)